=== PATIENT | female | born 1940 | race Caucasian/White ===

== ENCOUNTER 2016-08-07 10:35 | Outpatient (CLI) | payer OTHER ==
--- NOTE | 2016-08-07 12:53 | DIAGNOSTIC IMAGING REPORT ---
PROCEDURE: MG BILATERAL SCREENING W/CAD INDICATION: Screening, bilateral breast lumpectomy TECHNIQUE: Standard CC and MLO views bilaterally. Computer aided detection was used. COMPARISON: 06/08/2014, 04/05/2012, 04/03/2011 FINDINGS: Moderately dense, heterogeneous fibroglandular tissue is present bilaterally. No developing densities, areas of architectural distortion, or suspicious microcalcifications. IMPRESSION: 1. Stable mammograms without radiographic evidence of malignancy. RESULT CODE: 1- Negative. A. A negative report should not delay biopsy if a dominant or clinically suspicious mass is present. 10-15% of cancers are not identified by x-ray. B. A negative report may reinforce clinical impression. C. Adenosis and dense breasts may obscure an underlying neoplasm. D. False positive reports average 6-10%. E.. A yearly screening mammogram is recommended. A reminder letter will be scheduled.
== END 2016-08-07 23:00 ==
LOC: MAM SRH 10:35
DX: Z12.31 Encounter for screening mammogram for malignant neoplasm of breast (principal)

== ENCOUNTER 2016-08-31 17:11 | Emergency (ER) | payer OTHER ==
--- NOTE | 2016-08-31 18:34 | ED CLINICAL REPORT ---
Clinical Report - Physicians/Mid Levels [facility] [address] [place] [address] 08/31/2016 17:15 [id number] Time Seen: 17:25; initial patient contact. Arrived- By private vehicle. HISTORY OF PRESENT ILLNESS Chief Complaint: Injury to the right hand. The injury happened just prior to arrival. The patient sustained a moderate direct blow (hit by a foul ball at a baseball game with her hand on the bleacher under her hand and the ball struck the top of her hand.). Occurred at an athletic field. Patient is experiencing severe pain. No other injury. REVIEW OF SYSTEMS The patient has had swelling. All systems otherwise negative, except as recorded above. PAST HISTORY See nurses notes. The patient's dominant hand is the right. Tetanus immunization status is up-to-date. Medications: Levodopa. Methocarbamol Oral. Amitriptyline HCl Oral. Tramadol HCL Oral, as needed as needed. Glucosamine Oral. Allergies: NSAIDs. SOCIAL HISTORY Never smoker. Occasional alcohol use. No drug use. ADDITIONAL NOTES The nursing notes have been reviewed with agreement regarding the chief complaint, HPI, ROS, PMH and patient medications and allergies. PHYSICAL EXAM Vital Signs: 08/31/2016 17:24 BP: 163/92. HR: 58. RR: 20. O2 saturation: 98%. Temp: 97.8 F. Pain level now: 310. Have been reviewed. Appearance: Alert. Oriented X3. Appears to be in pain. No acute distress. Head: Head atraumatic. Skin: Skin warm and dry. Skin intact. Extremities: Dorsal right hand: mild tenderness and swelling and small ecchymosis of the distal aspect of the dorsal hand. Neurovascular intact distally. (bruising present to the mcp area of the right hand on the 3-4th mcp's with pain with range of motion and swelling and bruising to the proximal 4th finger. NV intact.). Soft tissue tenderness present. No wrist injury. Extremities otherwise negative. Neuro, Vascular and Tendons: Vascular status intact. Sensation intact. Motor intact. Tendon function intact. Neuro: Oriented X 3. LABS, X-RAYS, AND EKG X-Rays: Right hand negative. The X-rays were independently viewed by me, interpreted by the radiologist and discussed with the radiologist. Rt Hand X-ray: No fracture. (Name: Alda Baig : 1940 MR#: [id number] Ordering Provider: ALDA PEACE Exam(s): XR HAND 3 OR 4 VIEWS - RIGHT Date of Exam: 08/31/2016 __ PROCEDURE: XR HAND 3 OR 4 VIEWS - RIGHT INDICATION: Struck by baseball, pain and swelling third digit TECHNIQUE: Four views of the right hand. COMPARISON: None. FINDINGS: Mildly decreased mineralization. No acute fractures. Normal osseous alignment. Smoothly corticated scalloping deformity at the distal radial ulnar joint. Mild changes of osteoarthritis involving the first metacarpal phalangeal joint, third and fourth distal interphalangeal joints. Mild swelling around the third proximal phalanx. No radiodense foreign bodies or suspicious calcifications. IMPRESSION: 1. Intact right hand. 2. Decreased mineralization. 3. Changes of minor, early osteoarthritis. Electronically Final signed by:Flor Cardona MD 08/31/2016 8:39:03 PM Technologist: YESENIA). PROGRESS AND PROCEDURES Splint Application: Time: 18:47. Volar splint applied to right middle, ring and little finger. Fiberglass splint applied to upper extremity. Splint applied by tech with direct supervision by me. Reassessed extremity following splint application. Neurovascular intact. Follow-up recommended within 2 days. Course of Care: Patient is stable. Symptoms better. CLINICAL IMPRESSION Single contusion with soft tissue hematoma to the right hand. INSTRUCTIONS Apply ice. Elevate affected areas above chest level. Wear fiberglass splint as needed and until better. Limit use of your hand for two days until better. No dietary restrictions. Warnings: COMPLICATIONS: Complications from this condition are possible. Future problems may include loss of function and pain. It is important to follow up with a physician for further evaluation and treatment. Your Current Medications: CONTINUE TAKING THE FOLLOWING MEDICATIONS: Amitriptyline HCl Oral. Glucosamine Oral. Levodopa*. Methocarbamol Oral. Tramadol HCL Oral : as needed, prn. Follow-up: Follow up with your doctor Thursday if not better. Understanding of the discharge instructions verbalized by patient. (Electronically signed by Alda Peace PA-C 08/31/2016 21:41)
--- NOTE | 2016-08-31 18:34 | ED ORDER SUMMARY ---
..... Patient: LUCINAALDA OrderSheet [facility] VisitID: [id number] [address] [place] [address] 76y, F Registration Date/Time: 08/31/2016 ORDER SHEET Weight: 87.5 kg (stated) Allergies: NSAIDs GENERAL ORDERS: Hand 3 or 4V Right Urgent (17:43 08/31/2016 Whitney ANAND) (Ack 17:45 NHouse ER Tech1) (17:53 MWinterer R.N.) Splint (UE) (Right) (Volar) (splint middle two fingers/mcp joints) (18:15 08/31/2016 Whitney ANAND) (Ack 18:27 MWinterer R.N.) (18:39 [facility]) MEDICATION ORDERS: IV FLUIDS: ORDER SHEET NOTES: [Electronically signed by Maureen Carranza R.N. (18:57 08/31/2016)] [Electronically signed by Alda Workman PA-C (21:41 08/31/2016)] [Electronically locked/signed by Maureen Carranza R.N. (18:57 08/31/2016)]
--- NOTE | 2016-08-31 18:34 | ED NURSING NOTES ---
Clinical Report - Nurses [place] [address] [place] [address] 08/31/2016 17:15 Patient: ALDA VERDUGO TRIAGE Acuity: LEVEL 4. Chief Complaint: INJURY TO RIGHT HAND. Alert. No acute distress. LUCITA COMA SCORE: Lucita Coma Scale: 15- eyes open spontaneously (4); best verbal response- oriented x 4 (5); best motor response- obeys commands (6). --17:32 Maureen Carranza R.N. 17:24 08/31/16. BP: 163/92. HR: 58. RR: 20. O2 saturation: 98%. Temp: 97.8 F (oral). Pain level now: 06/06. --17:32 Maureen Carranza R.N. Weight: 87.5 kg stated. Height/Length: 65 inches Per Patient. BMI: 32.1. --17:30 Maureen Carranza R.N. Medications Glucosamine Oral. --17:27 Maureen Carranza R.N. Tramadol HCL Oral, as needed as needed. --17:28 Maureen Carranza R.N. Amitriptyline HCl Oral. --17:29 Maureen Carranza R.N. Methocarbamol Oral. --17:30 Maureen Carranza R.N. Levodopa. --17:36 Maureen Carranza R.N. Medication/allergy information source: the patient. --17:32 Maureen Carranza R.N. Allergies NSAIDs. --17:30 Maureen Carranza R.N. History Arrived by private vehicle, and accompanied by family. Primary physician (ALEXEY Velazco). This occurred just prior to arrival. Occurred at an athletic field. Mechanism of injury: a single blow with a baseball. Treatment ENVIRONMENTAL ASSISTANT: Ice and took Tylenol. PAST MEDICAL HX: The patient has had a hysterectomy. SOCIAL HX: Never smoker. Occasional alcohol use. No drug use. NUTRITIONAL RISK ASSESSMENT: The nutritional risk assessment revealed no deficiencies. FUNCTIONAL ASSESSMENT: Functional assessment: no impairments noted. LEARNING NEEDS ASSESSMENT: The learning needs assessment revealed no barriers. FALL RISK ASSESSMENT: Fall risk assessment completed. Risk factors identified include patient age greater than 65 years. Fall interventions initiated. Patient placed on stretcher. Side rails up x2. Brakes on Bed in low position. Call light in reach of patient. SKIN INTEGRITY ASSESSMENT: Skin integrity risk assessment completed. No skin integrity risk identified. --17:32 Maureen Carranza R.N. Assessment GENERAL / NEURO / PSYCH: Alert. Oriented X 4. Appears in no acute distress. Patient appears calm and cooperative. RESPIRATORY: Respirations not labored. CVS: Capillary refill less than 2 seconds. GI / : Abdomen soft and nontender. SKIN: Mucous membranes are pink. Skin is warm and dry. --17:32 Maureen Carranza R.N. Interventions ID band on patient. To treatment room. --17:32 Maureen Carranza R.N. PHYSICAL ASSESSMENT Ambulatory to room. GENERAL / NEURO / PSYCH: Oriented X 4. Alert. Appears in no acute distress. EXTREMITIES: Capillary refill is less than 2 seconds in the extremities. Extremity pulses are within normal limits. Neuro-vascular status intact to the extremity. Right palm: tenderness, swelling and ecchymosis. Right middle finger: tenderness, swelling and ecchymosis. SKIN: Skin intact. Skin is warm and dry. --17:33 Maureen Carranza R.N. NURSING PROGRESS NOTES Two patient identifiers checked. Call light placed in reach. Side rails up x 1. Bed placed in lowest position. Brakes of bed on. Patient ready for evaluation- chart flagged and ED physician and PA notified. --17:33 Maureen Carranza R.N. Volar fiberglass finger splint applied to right index finger, middle finger and ring finger by tech. Distal pulses intact, sensation intact and motor within normal limits. --18:40 Marla Zarco. DISPOSITION / DISCHARGE Departure time: 18:50 Aug 31 2016. Condition at departure: improved and stable. No learning barriers present. Patient verbalized understanding. Written instructions provided in Hungarian. The patient was discharged by the physician periodontal assistant. She was discharged home and accompanied by pulmonology technician. She left the Emergency Department ambulatory and via private vehicle. Nurse Anesthesia Program Director driving. --18:56 Maureen Cararnza R.N. Locked/Released at 08/31/2016 18:57 by Maureen Carranza R.N.
--- NOTE | 2016-08-31 18:34 | ED ORDER SUMMARY ---
..... Patient: LUCINAALDA OrderSheet [facility] VisitID: [id number] [address] [place] [address] 76y, F Registration Date/Time: 08/31/2016 ORDER SHEET Weight: 87.5 kg (stated) Allergies: NSAIDs GENERAL ORDERS: Hand 3 or 4V Right Urgent (17:43 08/31/2016 Whitney ANAND) (Ack 17:45 NHouse ER Tech1) (17:53 MWinterer R.N.) Splint (UE) (Right) (Volar) (splint middle two fingers/mcp joints) (18:15 08/31/2016 Whitney ANAND) (Ack 18:27 MWinterer R.N.) (18:39 [facility]) MEDICATION ORDERS: IV FLUIDS: ORDER SHEET NOTES: [Electronically signed by Maureen Carranza R.N. (18:57 08/31/2016)] [Electronically signed by Alda Workman PA-C (21:41 08/31/2016)] [Electronically locked/signed by Maureen Carranza R.N. (18:57 08/31/2016)]
--- NOTE | 2016-08-31 18:34 | ED CLINICAL REPORT ---
Clinical Report - Physicians/Mid Levels [facility] [address] [place] [address] 08/31/2016 17:15 [id number] Time Seen: 17:25; initial patient contact. Arrived- By private vehicle. HISTORY OF PRESENT ILLNESS Chief Complaint: Injury to the right hand. The injury happened just prior to arrival. The patient sustained a moderate direct blow (hit by a foul ball at a baseball game with her hand on the bleacher under her hand and the ball struck the top of her hand.). Occurred at an athletic field. Patient is experiencing severe pain. No other injury. REVIEW OF SYSTEMS The patient has had swelling. All systems otherwise negative, except as recorded above. PAST HISTORY See nurses notes. The patient's dominant hand is the right. Tetanus immunization status is up-to-date. Medications: Levodopa. Methocarbamol Oral. Amitriptyline HCl Oral. Tramadol HCL Oral, as needed as needed. Glucosamine Oral. Allergies: NSAIDs. SOCIAL HISTORY Never smoker. Occasional alcohol use. No drug use. ADDITIONAL NOTES The nursing notes have been reviewed with agreement regarding the chief complaint, HPI, ROS, PMH and patient medications and allergies. PHYSICAL EXAM Vital Signs: 08/31/2016 17:24 BP: 163/92. HR: 58. RR: 20. O2 saturation: 98%. Temp: 97.8 F. Pain level now: 310. Have been reviewed. Appearance: Alert. Oriented X3. Appears to be in pain. No acute distress. Head: Head atraumatic. Skin: Skin warm and dry. Skin intact. Extremities: Dorsal right hand: mild tenderness and swelling and small ecchymosis of the distal aspect of the dorsal hand. Neurovascular intact distally. (bruising present to the mcp area of the right hand on the 3-4th mcp's with pain with range of motion and swelling and bruising to the proximal 4th finger. NV intact.). Soft tissue tenderness present. No wrist injury. Extremities otherwise negative. Neuro, Vascular and Tendons: Vascular status intact. Sensation intact. Motor intact. Tendon function intact. Neuro: Oriented X 3. LABS, X-RAYS, AND EKG X-Rays: Right hand negative. The X-rays were independently viewed by me, interpreted by the radiologist and discussed with the radiologist. Rt Hand X-ray: No fracture. (Name: Alda Baig : 1940 MR#: [id number] Ordering Provider: ALDA PEACE Exam(s): XR HAND 3 OR 4 VIEWS - RIGHT Date of Exam: 08/31/2016 __ PROCEDURE: XR HAND 3 OR 4 VIEWS - RIGHT INDICATION: Struck by baseball, pain and swelling third digit TECHNIQUE: Four views of the right hand. COMPARISON: None. FINDINGS: Mildly decreased mineralization. No acute fractures. Normal osseous alignment. Smoothly corticated scalloping deformity at the distal radial ulnar joint. Mild changes of osteoarthritis involving the first metacarpal phalangeal joint, third and fourth distal interphalangeal joints. Mild swelling around the third proximal phalanx. No radiodense foreign bodies or suspicious calcifications. IMPRESSION: 1. Intact right hand. 2. Decreased mineralization. 3. Changes of minor, early osteoarthritis. Electronically Final signed by:Flor Cardona MD 08/31/2016 8:39:03 PM Technologist: YESENIA). PROGRESS AND PROCEDURES Splint Application: Time: 18:47. Volar splint applied to right middle, ring and little finger. Fiberglass splint applied to upper extremity. Splint applied by tech with direct supervision by me. Reassessed extremity following splint application. Neurovascular intact. Follow-up recommended within 2 days. Course of Care: Patient is stable. Symptoms better. CLINICAL IMPRESSION Single contusion with soft tissue hematoma to the right hand. INSTRUCTIONS Apply ice. Elevate affected areas above chest level. Wear fiberglass splint as needed and until better. Limit use of your hand for two days until better. No dietary restrictions. Warnings: COMPLICATIONS: Complications from this condition are possible. Future problems may include loss of function and pain. It is important to follow up with a physician for further evaluation and treatment. Your Current Medications: CONTINUE TAKING THE FOLLOWING MEDICATIONS: Amitriptyline HCl Oral. Glucosamine Oral. Levodopa*. Methocarbamol Oral. Tramadol HCL Oral : as needed, prn. Follow-up: Follow up with your doctor Thursday if not better. Understanding of the discharge instructions verbalized by patient. (Electronically signed by Alda Peace PA-C 08/31/2016 21:41)
--- NOTE | 2016-08-31 18:34 | ED NURSING NOTES ---
Clinical Report - Nurses [place] [address] [place] [address] 08/31/2016 17:15 Patient: ALDA VERDUGO TRIAGE Acuity: LEVEL 4. Chief Complaint: INJURY TO RIGHT HAND. Alert. No acute distress. LUCITA COMA SCORE: Lucita Coma Scale: 15- eyes open spontaneously (4); best verbal response- oriented x 4 (5); best motor response- obeys commands (6). --17:32 Maureen Carranza R.N. 17:24 08/31/16. BP: 163/92. HR: 58. RR: 20. O2 saturation: 98%. Temp: 97.8 F (oral). Pain level now: 06/06. --17:32 Maureen Carranza R.N. Weight: 87.5 kg stated. Height/Length: 65 inches Per Patient. BMI: 32.1. --17:30 Maureen Carranza R.N. Medications Glucosamine Oral. --17:27 Maureen Carranza R.N. Tramadol HCL Oral, as needed as needed. --17:28 Maureen Carranza R.N. Amitriptyline HCl Oral. --17:29 Maureen Carranza R.N. Methocarbamol Oral. --17:30 Maureen Carranza R.N. Levodopa. --17:36 Maureen Carranza R.N. Medication/allergy information source: the patient. --17:32 Maureen Carranza R.N. Allergies NSAIDs. --17:30 Maureen Carranza R.N. History Arrived by private vehicle, and accompanied by family. Primary physician (ALEXEY Velazco). This occurred just prior to arrival. Occurred at an athletic field. Mechanism of injury: a single blow with a baseball. Treatment FRESH FOODS TECHNICIAN: Ice and took Tylenol. PAST MEDICAL HX: The patient has had a hysterectomy. SOCIAL HX: Never smoker. Occasional alcohol use. No drug use. NUTRITIONAL RISK ASSESSMENT: The nutritional risk assessment revealed no deficiencies. FUNCTIONAL ASSESSMENT: Functional assessment: no impairments noted. LEARNING NEEDS ASSESSMENT: The learning needs assessment revealed no barriers. FALL RISK ASSESSMENT: Fall risk assessment completed. Risk factors identified include patient age greater than 65 years. Fall interventions initiated. Patient placed on stretcher. Side rails up x2. Brakes on Bed in low position. Call light in reach of patient. SKIN INTEGRITY ASSESSMENT: Skin integrity risk assessment completed. No skin integrity risk identified. --17:32 Maureen Carranza R.N. Assessment GENERAL / NEURO / PSYCH: Alert. Oriented X 4. Appears in no acute distress. Patient appears calm and cooperative. RESPIRATORY: Respirations not labored. CVS: Capillary refill less than 2 seconds. GI / : Abdomen soft and nontender. SKIN: Mucous membranes are pink. Skin is warm and dry. --17:32 Maureen Carranza R.N. Interventions ID band on patient. To treatment room. --17:32 Maureen Carranza R.N. PHYSICAL ASSESSMENT Ambulatory to room. GENERAL / NEURO / PSYCH: Oriented X 4. Alert. Appears in no acute distress. EXTREMITIES: Capillary refill is less than 2 seconds in the extremities. Extremity pulses are within normal limits. Neuro-vascular status intact to the extremity. Right palm: tenderness, swelling and ecchymosis. Right middle finger: tenderness, swelling and ecchymosis. SKIN: Skin intact. Skin is warm and dry. --17:33 Maureen Carranza R.N. NURSING PROGRESS NOTES Two patient identifiers checked. Call light placed in reach. Side rails up x 1. Bed placed in lowest position. Brakes of bed on. Patient ready for evaluation- chart flagged and ED physician and PA notified. --17:33 Maureen Carranza R.N. Volar fiberglass finger splint applied to right index finger, middle finger and ring finger by tech. Distal pulses intact, sensation intact and motor within normal limits. --18:40 Marla Zarco. DISPOSITION / DISCHARGE Departure time: 18:50 Aug 31 2016. Condition at departure: improved and stable. No learning barriers present. Patient verbalized understanding. Written instructions provided in French. The patient was discharged by the physician assistant plant manager. She was discharged home and accompanied by assessment expert. She left the Emergency Department ambulatory and via private vehicle. Multi Line Claims Adjuster driving. --18:56 Maureen Carranza R.N. Locked/Released at 08/31/2016 18:57 by Maureen Carranza R.N.
--- NOTE | 2016-08-31 20:39 | DIAGNOSTIC IMAGING REPORT ---
PROCEDURE: XR HAND 3 OR 4 VIEWS - RIGHT INDICATION: Struck by baseball, pain and swelling third digit TECHNIQUE: Four views of the right hand. COMPARISON: None. FINDINGS: Mildly decreased mineralization. No acute fractures. Normal osseous alignment. Smoothly corticated scalloping deformity at the distal radial ulnar joint. Mild changes of osteoarthritis involving the first metacarpal phalangeal joint, third and fourth distal interphalangeal joints. Mild swelling around the third proximal phalanx. No radiodense foreign bodies or suspicious calcifications. IMPRESSION: 1. Intact right hand. 2. Decreased mineralization. 3. Changes of minor, early osteoarthritis.
--- NOTE | 2016-08-31 21:41 | ED MAR SUMMARY ---
..... Medication Administration Record [facility] [address] [place], [place] [id number] Patient: ALDA VERDUGO Laz Visit ID: [id number] 76y, F Weight: 87.5 kg Height/Length: 65 in BMI: 32.1 ALLERGIES: NSAIDs
--- NOTE | 2016-08-31 21:41 | ED DISCHARGE INSTRUCTIONS ---
Patient: LUCINAMOSESCrissy Nesbitt General Instructions [facility] VisitID: [id number] [address] [place] [address] 76y, F Registration Date/Time: 08/31/2016 Single contusion with soft tissue hematoma to the right hand. INSTRUCTIONS Apply ice. Elevate affected areas above chest level. Wear fiberglass splint as needed and until better. Limit use of your hand for two days until better. No dietary restrictions. Warnings: COMPLICATIONS: Complications from this condition are possible. Future problems may include loss of function and pain. It is important to follow up with a physician for further evaluation and treatment. Your Current Medications: CONTINUE TAKING THE FOLLOWING MEDICATIONS: Amitriptyline HCl Oral. Glucosamine Oral. Levodopa*. Methocarbamol Oral. Tramadol HCL Oral : as needed, prn. Follow-up: Follow up with your doctor Thursday if not better. Understanding of the discharge instructions verbalized by patient. Limit use of your hand for two days until better. (Electronically signed by Alda Workman PA-C 08/31/2016 21:41)
--- NOTE | 2016-08-31 21:41 | ED MAR SUMMARY ---
..... Medication Administration Record [facility] [address] [place], [place] [id number] Patient: ALDA VERDUGO Laz Visit ID: [id number] 76y, F Weight: 87.5 kg Height/Length: 65 in BMI: 32.1 ALLERGIES: NSAIDs
--- NOTE | 2016-08-31 21:41 | ED MED RECONCILIATION SUMMARY ---
Patient: LUCINAMOSESE Laz Medication Reconciliation Report [facility] VisitID: [id number] [address] [place] [address] 76y, F Registration Date/Time: 08/31/2016 Weight: 87.5 kg Height/Length: 65 in. BMI: 32.1 ALLERGIES: NSAIDs The patient's Home Medications are listed below: CONTINUE TAKING THE FOLLOWING MEDICATIONS: Amitriptyline HCl Oral Glucosamine Oral Levodopa Methocarbamol Oral Tramadol HCL Oral, as needed The source(s) of the original Home Medication information: patient The following Medications were given to the patient in the Emergency Department: None. The following Medications were prescribed to the patient: None.
--- NOTE | 2016-08-31 21:41 | ED DISCHARGE INSTRUCTIONS ---
Patient: LUCINAMOSESCrissy Nesbitt General Instructions [facility] VisitID: [id number] [address] [place] [address] 76y, F Registration Date/Time: 08/31/2016 Single contusion with soft tissue hematoma to the right hand. INSTRUCTIONS Apply ice. Elevate affected areas above chest level. Wear fiberglass splint as needed and until better. Limit use of your hand for two days until better. No dietary restrictions. Warnings: COMPLICATIONS: Complications from this condition are possible. Future problems may include loss of function and pain. It is important to follow up with a physician for further evaluation and treatment. Your Current Medications: CONTINUE TAKING THE FOLLOWING MEDICATIONS: Amitriptyline HCl Oral. Glucosamine Oral. Levodopa*. Methocarbamol Oral. Tramadol HCL Oral : as needed, prn. Follow-up: Follow up with your doctor Thursday if not better. Understanding of the discharge instructions verbalized by patient. Limit use of your hand for two days until better. (Electronically signed by Alda Workman PA-C 08/31/2016 21:41)
--- NOTE | 2016-08-31 21:41 | ED MED RECONCILIATION SUMMARY ---
Patient: LUCINAMOSESE Laz Medication Reconciliation Report [facility] VisitID: [id number] [address] [place] [address] 76y, F Registration Date/Time: 08/31/2016 Weight: 87.5 kg Height/Length: 65 in. BMI: 32.1 ALLERGIES: NSAIDs The patient's Home Medications are listed below: CONTINUE TAKING THE FOLLOWING MEDICATIONS: Amitriptyline HCl Oral Glucosamine Oral Levodopa Methocarbamol Oral Tramadol HCL Oral, as needed The source(s) of the original Home Medication information: patient The following Medications were given to the patient in the Emergency Department: None. The following Medications were prescribed to the patient: None.
== END 2016-08-31 18:50 | disposition home or self-care (01) ==
LOC: ED SRH 17:11
DX: S60.221A Contusion of right hand, initial encounter (principal); W21.05XA Struck by basketball, initial encounter; Y93.64 Activity, baseball; Y92.320 Baseball field as the place of occurrence of the external cause; Y99.9 Unspecified external cause status; Z79.899 Other long term (current) drug therapy; Z79.891 Long term (current) use of opiate analgesic; Z88.6 Allergy status to analgesic agent

== ENCOUNTER 2016-09-03 09:39 | Outpatient (CLI) | payer OTHER ==
--- NOTE | 2016-09-03 11:16 | DIAGNOSTIC IMAGING REPORT ---
PROCEDURE: CT HEAD WITHOUT CONTRAST INDICATION: OPHTHALMOPLEGIC MIGRAIN TECHNIQUE: Axial CT images were acquired through the head. Coronal and sagittal reformations were created. COMPARISON: None. FINDINGS: There is small-vessel ischemic disease manifested by hypodensity in the periventricular and subcortical white matter. No intracranial hemorrhage or extraaxial fluid collections. Ventricles are normal in size, shape and position. There is no mass, mass effect or midline shift. The sood-white matter differentiation is normal. The calvarium is intact. The paranasal sinuses and mastoid air cells are normally aerated. The extracranial soft tissues and orbits are normal. IMPRESSION: 1. No CT evidence of acute intracranial process. 2. Periventricular small-vessel ischemic disease. All CT scans at this facility use dose modulation, iterative reconstruction, and/or weight-based dosing when appropriate to reduce radiation dose to as low as reasonably achievable.
--- NOTE | 2016-09-03 11:25 | DIAGNOSTIC IMAGING REPORT ---
PROCEDURE: CTA HEAD AND NECK INDICATION: MIGRAINS TECHNIQUE: Axial thin-slice CTA images through the neck and head were acquired following uncomplicated administration of 95 ml Isovue 370 IV contrast. Coronal and sagittal MIP reformations were created. COMPARISON: None. FINDINGS: Head:: Anterior circulation: No evidence of aneurysm, vascular malformation, tumor stain or neovascularity. No evidence of vasculitis or vasospasm. Posterior circulation: No evidence of aneurysm, vascular malformation, tumor stain or neovascularity. No evidence of vasculitis or vasospasm. Other findings: No evidence of vasculitis or vasospasm. Neck: Carotid system: No evidence of atherosclerotic disease, dissection, or fibromuscular dysplasia. Vertebral system: No evidence of atherosclerotic disease, dissection, or fibromuscular dysplasia. Other findings: No evidence of vasculitis or vasospasm. IMPRESSION: 1. Normal
== END 2016-09-03 23:00 ==
LOC: CT SRH 09:39
DX: G43.909 Migraine, unspecified, not intractable, without status migrainosus (principal)